=== PATIENT | female | born 1985 | race Caucasian/White ===

== ENCOUNTER 2017-07-23 14:37 | Emergency (ER) | payer SELFPAY ==
[~2017-07-23] VITALS: Ht 154.9 cm; Wt 73.0 kg
[2017-07-23] MEDS ORDERED: IBUPROFEN 800MG TABLET PO ONE (18:15)
[2017-07-23 18:16] VITALS: BP 115/64
== END 2017-07-23 19:18 | disposition home or self-care (01) ==
LOC: ER 17:55
DX: H00.022 Hordeolum internum right lower eyelid (principal); J32.9 Chronic sinusitis, unspecified; Z98.890 Other specified postprocedural states
CPT/HCPCS: 99282